=== PATIENT | female | born 1970 | race African-American/Black ===

== ENCOUNTER 2017-01-13 10:11 | Emergency (ER) | payer OTHER, MEDICARE, BC ==
[~2017-01-13] VITALS: Ht 167.6 cm; Wt 80.8 kg
[~2017-01-13 10:11] MED LIST: PROT40TA PO; TRAM50 PO
[2017-01-13 10:22] VITALS: BP 103/62; PULSE 84; RESP 16; TEMP 98.2; O2SAT 96
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
== END 2017-01-13 11:38 | disposition left against medical advice (07) ==
LOC: PHED 10:11 → PHEFT 11:38
DX: S16.1XXA Strain of muscle, fascia and tendon at neck level, initial encounter (principal); R22.42 Localized swelling, mass and lump, left lower limb; R20.0 Anesthesia of skin; R20.2 Paresthesia of skin; Z72.0 Tobacco use; Z87.19 Personal history of other diseases of the digestive system; Z87.42 Personal history of other diseases of the female genital tract; V49.88XA Car occupant (driver) (passenger) injured in other specified transport accidents, initial encounter
CPT/HCPCS: 99281